=== PATIENT | female | born 1965 | race African-American/Black ===

== ENCOUNTER 2022-04-19 00:15 | Emergency (ER) | payer OTHER, SELFPAY ==
[2022-04-19 00:19] VITALS: BP 160/101; PULSE 86; RESP 12; TEMP 36.3; O2SAT 100
[2022-04-19 00:22] VITALS: BP 153/99; PULSE 77; RESP 20; O2SAT 100
--- NOTE | 2022-04-19 00:49 | ED.BACK ---
HPI - Back Pain/Injury General Chief Complaint: Back Pain/Injury Stated Complaint: back pain Time Seen by Provider: 04/19/22 00:22 History of Present Illness HPI Narrative: 56-year-old female presents emergency room secondary right lower back pain. She had this in the past. She denies any recent trauma or doing any heavy lifting. She denies any radiation of the pain. Just hurts when she tries to sit up or move. She not take anything for the pain prior to coming to emergency room today. She does have a history of sound like of some borderline hypertension but not have a primary care physician not been seen follow-up and treated for that. Related Data Allergies Allergy/AdvReac Type Severity Reaction Status Date / Time No Known Allergies Allergy Verified 04/19/22 00:19 Review of Systems Review of Systems: CONSTITUTIONAL: Denies fever, chills, or sweats. EYES: Denies visual changes, redness, or discharge. ENT: Denies rhinorrhea, congestion, sore throat, or otalgia. CARDIOVASCULAR: Denies chest pain, palpitations, or edema. RESPIRATORY: Denies cough or dyspnea. GASTROINTESTINAL: Denies abdominal pain, nausea, vomiting, or diarrhea. GENITOURINARY: Denies dysuria or hematuria. SKIN: Denies rash or itching. MUSCULOSKELETAL: Right lower back pain. No radicular pain. No joint pain. NEUROLOGIC: Denies headache, numbness, or weakness. PSYCHIATRIC: Denies anxiety or depression. [facility] Social History Social History (Updated 04/19/22 @ 00:51 by Antonio Hu DO) Occupation/Education: unemployed Exam Narrative: APPEARANCE: Well appearing, no pain or distress, well-nourished. Head Normocephalic and atraumatic. EYES: PERRLA/EOMI, conjunctivae clear. NOSE: Normal with no drainage EARS:TMS clear with Carvalho, with good light reflex. THROAT: Pharynx clear, no exudate. NECK: Supple. No adenopathy, no masses. RESPIRATORY: Airway patent, respirations nonlabored. Clear to auscultation bilaterally, no rales, rhonchi, wheezing. CARDIOVASCULAR: Regular rate and rhythm without murmurs, rubs, or gallops. ABDOMINAL: Soft, nontender, nondistended, no hepatosplenomegaly Musculoskeletal: Moves all extremities without difficulty. She has reproducible tenderness in the right paraspinal muscles in the lumbar region with a lot of muscle spasm noted. Negative straight leg raising. NEURO: Alert. Cranial nerves II through XII intact. Normal gait. Good coordination. Nonfocal examination. SKIN:: Warm, dry. Normal Color PSYCHIATRIC: Normal affect/mood, normal interaction Course Vital Signs Vital signs: Vital Signs Temperature 97.4 F L 04/19/22 00:19 Pulse Rate 86 04/19/22 00:19 Respiratory Rate 12 04/19/22 00:19 Blood Pressure 160/101 H 04/19/22 00:19 Pulse Oximetry 100 04/19/22 00:19 Oxygen Delivery Room Air 04/19/22 00:19 Temperature 97.4 F L 04/19/22 00:19 Pulse Rate 77 04/19/22 00:22 Respiratory Rate 20 04/19/22 00:22 Blood Pressure 153/99 H 04/19/22 00:22 Pulse Oximetry 100 04/19/22 00:22 Oxygen Delivery Room Air 04/19/22 00:19 MDM - Back Pain/Injury MDM Narrative Medical decision making narrative: Patient is lumbar sprain strain in the right lower lumbar region. Blood pressure was noted to be slightly elevated with a diastolic of 99. She states that sometimes is noted to be high but other times is checked is not high. Give her primary care physician that she can follow-up with to get this addressed and treated if needed. Discharge Plan Discharge Clinical Impression: Strain of lumbar region Patient Disposition: Home, Self-Care Condition: Stable Instructions: Acute Low Back Pain (ED) Additional Instructions: Take medication as prescribed. Apply heat to the area. Follow-up with a physician. Prescriptions: New naproxen [Naprosyn] 500 mg tablet 500 mg PO BID PRN (Reason: pain) Qty: 20 0RF cyclobenzaprine 10 mg tablet 10 mg PO TID PRN (Reason: muscle spasm) Qty: 30 0RF
[2022-04-19] MEDS: NAPROXEN 500 MG TABLET PO (00:51)
[2022-04-19 01:10] VITALS: BP 135/90; PULSE 76; RESP 16; O2SAT 98
== END 2022-04-19 01:10 | disposition home or self-care (01) ==
LOC: ANHED 00:48
PROVIDERS: Emergency Provider Emergency Medicine
DX: S39.012A Strain of muscle, fascia and tendon of lower back, initial encounter (principal); X58.XXXA Exposure to other specified factors, initial encounter
CPT/HCPCS: 99283; A9270